=== PATIENT | male | born 1950 | race Caucasian/White ===

== ENCOUNTER 2019-02-27 22:39 | Emergency (ER) | payer MEDICARE, MEDICAID ==
[~2019-02-27] VITALS: Ht 180.3 cm; Wt 95.0 kg
[2019-02-28 00:01] VITALS: BP 147/68
--- NOTE | 2019-02-28 00:04 | NUR ---
VIOLETTA SWAIN # CELLPHONE [phone] , THIS IS THE ADMINSTRATOR FOR THE [facility]IVING FACILITY THE PATIENT IS AT, HE WOULD LIKE A PHONE CALL WHEN WE HAVE HERE DISPOSITION, THE FACILITY USES [facility].
[2019-02-28 00:21] LABS: ANION GAP 4 (8-16); BLOOD UREA NITROGEN 17 MG/DL (7-18); BUN/CREATININE RATIO 16.7 (5.4-32.0); CHLORIDE 106 MMOL/L (99-107); CREATININE 1.02 MG/DL (0.60-1.10); GLUCOSE 119 MG/DL (70-104); POTASSIUM 3.5 MMOL/L (3.5-5.1); SODIUM 141 MMOL/L (135-145); TOTAL CARBON DIOXIDE 30.6 MMOL/L (24-32)
[2019-02-28 00:22] LABS: ALANINE AMINOTRANSFERASE 39 U/L (12-78); ALBUMIN 3.2 G/DL (3.4-5.0); ALBUMIN/GLOBULIN RATIO 0.9 (1.1-1.5); ALKALINE PHOSPHATASE 92 IU/L (46-116); ASPARTATE AMINO TRANSFERASE 14 U/L (10-37); BILIRUBIN,TOTAL 0.4 MG/DL (0.1-1.0); CALCIUM 8.9 MG/DL (8.5-10.1); TOTAL PROTEIN 6.7 G/DL (6.4-8.2); eGFR 73 ML/MIN
[2019-02-28 00:26] LABS: BASOPHILS # (AUTO) 0.1 X10'3 (0-0.2); EOSINOPHILS # (AUTO) 0.1 X10'3 (0-0.9); HEMOGLOBIN 15.3 g/dl (14.0-17.9); MONOCYTES # (AUTO) 0.7 X10'3 (0-0.9); MONOCYTES % (AUTO) 9.9 % (2-12); NEUTROPHILS # (AUTO) 5.2 X10'3 (1.8-7.7); WHITE BLOOD COUNT 7.2 X10'3 (4.5-11.0)
[2019-02-28 00:28] LABS: BASOPHILS % (AUTO) 1.3 % (0-1); EOSINOPHILS % (AUTO) 1.8 % (0-6); HEMATOCRIT 45.1 % (42.0-52.0); LYMPHOCYTES % (AUTO) 14.1 % (21-51); MEAN CORPUSCULAR HEMOGLOBIN 30.6 PG (27.0-31.0); MEAN CORPUSCULAR HGB CONC 33.9 g/dL (33.0-36.5); MEAN CORPUSCULAR VOLUME 90.2 FL (78-98); MEAN PLATELET VOLUME 8.6 FL (7.4-10.4); NEUTROPHILS % (AUTO) 72.9 % (42-75); PLATELET COUNT 149 X10'3 (140-440); RED CELL DISTRIBUTION WIDTH 14.5 % (11.5-14.5)
[2019-02-28 00:29] LABS: PARTIAL THROMBOPLASTIN TIME 29 SECONDS (22-32)
--- NOTE | 2019-02-28 02:32 | NUR ---
CONTACTED CARE FACILITY WHO WILL CONTACT JESSICA FOR PT PICKUP
== END 2019-02-28 02:33 | disposition home or self-care (01) ==
LOC: ER 22:40
DX: K62.5 Hemorrhage of anus and rectum (principal)
CPT/HCPCS: 36415; 74176; 80053; 85025; 85610; 85730; 86870; 86880; 86885; 86900; 86901; 86902; 86905; 99284

== ENCOUNTER 2019-06-09 07:45 | Day surgery (SDC) | payer MEDICARE, MEDICAID ==
[2019-06-04 14:28] LABS: BASOPHILS # (AUTO) 0.1 X10'3 (0-0.2); EOSINOPHILS # (AUTO) 0.1 X10'3 (0-0.9); MEAN CORPUSCULAR HEMOGLOBIN 30.7 PG (27.0-31.0); MONOCYTES # (AUTO) 0.6 X10'3 (0-0.9); PRE OP HEMOGLOBIN 15.1 g/dL (14.0-17.9); RED BLOOD COUNT 4.91 X10'6 (4.70-6.10); RED CELL DISTRIBUTION WIDTH 14.3 % (11.5-14.5)
[2019-06-04 14:29] LABS: BASOPHILS % (AUTO) 1.3 % (0-1); EOSINOPHILS % (AUTO) 1.9 % (0-6); LYMPHOCYTES % (AUTO) 13.7 % (21-51); MEAN CORPUSCULAR HGB CONC 33.7 g/dL (33.0-36.5); MEAN PLATELET VOLUME 8.4 FL (7.4-10.4); MONOCYTES % (AUTO) 7.4 % (2-12); NEUTROPHILS # (AUTO) 5.7 X10'3 (1.8-7.7); NEUTROPHILS % (AUTO) 75.7 % (42-75); PRE OP HEMATOCRIT 44.7 % (42.0-52.0); PRE OP PLATELET COUNT 156 X10'3 (140-440)
[2019-06-04 14:41] LABS: ALBUMIN 3.5 G/DL (3.4-5.0); ALBUMIN/GLOBULIN RATIO 0.9 (1.1-1.5); ALKALINE PHOSPHATASE 100 IU/L (46-116); BLOOD UREA NITROGEN 15 MG/DL (7-18); BUN/CREATININE RATIO 13.4 (5.4-32.0); CALCIUM 9.1 MG/DL (8.5-10.1); CREATININE 1.12 MG/DL (0.60-1.10); PRE OP ALT 36 U/L (30-65); PRE OP AST 16 U/L (10-37); PRE OP BILIRUB, TOTAL 0.5 MG/DL (0.0-1.0); PRE OP GLUCOSE 156 MG/DL (70-104); TOTAL CARBON DIOXIDE 34.8 MMOL/L (24-32); TOTAL PROTEIN 7.3 G/DL (6.4-8.2); eGFR 65 ML/MIN
[2019-06-04 15:14] LABS: CHLORIDE 103 MMOL/L (99-107); PRE OP ANION GAP 2 (8-16); PRE OP POTASSIUM 3.9 MMOL/L (3.4-5.1); PRE OP SODIUM 140 MMOL/L (135-145)
[2019-06-04 15:59] LABS: HEMOGLOBIN A1C 5.8 % (4.5-6.2)
[~2019-06-09] VITALS: Ht 180.3 cm; Wt 99.8 kg
[2019-06-09] VITALS (9 sets, daily range): BP systolic 113–134; BP diastolic 63–78
[~2019-06-09 07:45] MED LIST: DOCU250C88 PO; FLO0.4C PO; HYDR12.5 PO; LEVO75TA7 PO; LORA10TA7 PO; LOSA50TA64 PO; POTA20TA19 PO; RANI150T8 PO; SIME80TA16 PO; cefazolin/dext.iso 2gm/100 ML IV ONE; famotidine 20mg tablet PO ONE; ringers solution, lacted 1,000 ML IV SCH
[2019-06-09] MEDS ORDERED: BUPIVAcaine/PF 2.5 mg/ml (0.25%) 30ml vial ONE (10:47)
[2019-06-09] MEDS ORDERED: LIDOcaine 1% 30ml preserv. free vial ONE (10:47)
[2019-06-09] MEDS ORDERED: ringers solution, lacted 1,000 ML IV SCH (10:55)
[2019-06-09] MEDS ORDERED: ondansetron/PF 4mg/2ml inj IV PRN (10:55)
[2019-06-09] MEDS ORDERED: fentaNYL/PF 50MCG/1 ML 2ML syringe IV PRN ×2 (10:55)
[2019-06-09] MEDS ORDERED: morphine 4 MG/ML inj SYRINge IV PRN ×2 (10:55)
[2019-06-09] MEDS ORDERED: hydrALAZINE 20mg/ml inj. IV PRN (10:55)
[2019-06-09] MEDS ORDERED: labetalol 20mg/4ml (5mg/ml) syringe IV PRN (10:55)
[2019-06-09] MEDS ORDERED: fentaNYL /PF 50mcg/ml 5ml ampule ONE (11:36)
[2019-06-09] MEDS ORDERED: midazolam 2 mg/2 ml injection ONE (11:36)
[2019-06-09] MEDS ORDERED: glycopyrrolate 0.2mg/ml inj ONE (11:45)
[2019-06-09] MEDS ORDERED: LIDOcaine 2% (20mg/ml) 5ml vial ONE (11:45)
[2019-06-09] MEDS ORDERED: ondansetron/PF 4mg/2ml inj ONE (11:45)
[2019-06-09] MEDS ORDERED: rocuronium 10mg/ml inj IV ONE (11:45)
[2019-06-09] MEDS ORDERED: neostigmine methylsulfate 1 MG/ML 10ml vial ONE (11:45)
[2019-06-09] MEDS ORDERED: dexamethasone sod phosphate 4mg/ml inj. ONE (11:45)
[2019-06-09] MEDS ORDERED: propofol inj 20 ML IV ONE (11:45)
[2019-06-09] MEDS ORDERED: phenylephrine 10mg/ml inj. ONE (11:52)
[2019-06-09] MEDS ORDERED: sevoflurane 250ml liquid IH ONE (11:52)
[2019-06-09] MEDS ORDERED: ketorolac trometh. 30mg/ml inj. ONE (12:22)
[2019-06-09] MEDS ORDERED: ROPIVAcaine 0.5% (5mg/ml) 30ml vial ONE (12:22)
--- NOTE | 2019-06-09 13:41 | NUR ---
Received from OR via , accompanied by Anesthesiologist DR DIAMOND and report given by Anesthesiolgist. AWAKENS TO VOICE. VITALS STABLE. DRESSING DI. FAISAL PAIN. ABD BINDER IN PLACE.
[2019-06-09] MEDS ORDERED: oxyCODONE/APAP 10/325mg tablet PO ONE (14:15)
--- NOTE | 2019-06-09 15:01 | NUR ---
AWAKE AND ORIENTED. VITALS STABLE. DRESSING DITere [place] IMPROVING. HOME WITH HIS SLOT OPERATIONS DIRECTOR AT THIS TIME.
[2019-06-09] MEDS ORDERED: potassium Cl 20 mEq SR tablet PO SCH (20:00)
[2019-06-09] MEDS ORDERED: simethicone 80mg chew tab PO SCH (21:00)
[2019-06-10] MEDS ORDERED: losartan 50mg tablet PO SCH (08:00)
[2019-06-10] MEDS ORDERED: loratadine 10mg tablet PO SCH (08:00)
[2019-06-10] MEDS ORDERED: tamsulosin 0.4mg capsule PO SCH (08:00)
[2019-06-10] MEDS ORDERED: famotidine 20mg tablet PO SCH (08:00)
[2019-06-10] MEDS ORDERED: HYDROchlorothiazide 12.5mg capsule PO SCH (08:00)
[2019-06-10] MEDS ORDERED: levoTHYROXINE 75mcg tablet PO SCH (08:00)
[2019-06-10] MEDS ORDERED: docusate sod 250mg capsule PO SCH (08:00)
== END 2019-06-09 15:01 | disposition home or self-care (01) ==
LOC: PAS 07:45
PROVIDERS: ATTEND Surgery
DX: K43.0 Incisional hernia with obstruction, without gangrene (principal); K21.9 Gastro-esophageal reflux disease without esophagitis; N40.0 Benign prostatic hyperplasia without lower urinary tract symptoms; Z79.899 Other long term (current) drug therapy
CPT/HCPCS: 36415; 49655; 64488; 80053; 82948; 83036; 85025; 93005; 93306; J1100; J1885; J2001; J2250; J2270; J2405; J2704; J2710; J3010; J3490; A4215; A4618; C1781; J2370; J2795; J7120

== ENCOUNTER 2022-09-24 05:46 | Emergency (ER) | payer MEDICARE, MEDICAID ==
[~2022-09-24] VITALS: Ht 180.3 cm; Wt 94.5 kg
[~2022-09-24 05:46] MED LIST changes: -DOCU250C88 PO; +DOCU250C89 PO; +POTA-207 PO; -POTA20TA19 PO; -cefazolin/dext.iso 2gm/100 ML IV ONE; -famotidine 20mg tablet PO ONE; -ringers solution, lacted 1,000 ML IV SCH
[2022-09-24 06:51] VITALS: BP 131/64
[2022-09-24 07:05] LABS: CLARITY,URINE CLEAR (Clear); COLOR,URINE YELLOW (Yellow); GLUCOSE, URINE NEGATIVE (Neg); KETONES,URINE NEGATIVE (Neg); LEUKOCYTE ESTERASE ,URINE NEGATIVE (Neg); NITRITES, URINE NEGATIVE (Neg); OCCULT BLOOD,URINE SMALL (Neg); PH,URINE 5.5 (4.8-8.0); PROTEIN,URINE NEGATIVE (Neg); UROBILINOGEN,URINE 0.2 E.U/dL (0.2-1.0)
[2022-09-24 07:10] LABS: UA COLLECTION TYPE CLN CATCH MIDSTREAM
[2022-09-24 07:11] LABS: BACTERIA,URINE NONE SEEN /HPF (Neg); MUCUS STRANDS NONE SEEN /LPF (Neg); SQUAMOUS EPITHELIAL CELL,UR FEW /LPF (FEW); WBC,URINE 0-4 /HPF (0-4)
[2022-09-24 07:57] LABS: BASOPHILS # (AUTO) 0.1 X10'3 (0-0.2); BASOPHILS % (AUTO) 1.1 % (0-1); EOSINOPHILS # (AUTO) 0.1 X10'3 (0-0.9); EOSINOPHILS % (AUTO) 2.1 % (0-6); HEMATOCRIT 35.2 % (42.0-52.0); HEMOGLOBIN 11.3 g/dl (14.0-17.9); LYMPHOCYTES # (AUTO) 0.7 X10'3 (1.1-4.8); LYMPHOCYTES % (AUTO) 9.5 % (21-51); MEAN CORPUSCULAR HEMOGLOBIN 30.4 PG (27.0-31.0); MEAN CORPUSCULAR HGB CONC 32.1 g/dL (33.0-36.5); MEAN CORPUSCULAR VOLUME 94.5 FL (78-98); MEAN PLATELET VOLUME 8.4 FL (7.4-10.4); MONOCYTES # (AUTO) 0.4 X10'3 (0-0.9); MONOCYTES % (AUTO) 5.8 % (2-12); NEUTROPHILS # (AUTO) 5.7 X10'3 (1.8-7.7); NEUTROPHILS % (AUTO) 81.5 % (42-75); PLATELET COUNT 132 X10'3 (140-440); RED BLOOD COUNT 3.73 X10'6 (4.70-6.10); RED CELL DISTRIBUTION WIDTH 16.5 % (11.5-14.5); WHITE BLOOD COUNT 6.9 X10'3 (4.5-11.0)
[2022-09-24 08:10] LABS: ALANINE AMINOTRANSFERASE 25 U/L (12-78); ALBUMIN 3.8 G/DL (3.4-5.0); ALBUMIN/GLOBULIN RATIO 1.2 (1.1-1.5); ALKALINE PHOSPHATASE 99 IU/L (46-116); ANION GAP 6 (8-16); ASPARTATE AMINO TRANSFERASE 22 U/L (10-37); BILIRUBIN,TOTAL 1.3 MG/DL (0.1-1.0); BLOOD UREA NITROGEN 25 MG/DL (7-18); BUN/CREATININE RATIO 27.8 (5.4-32.0); CALCIUM 8.9 MG/DL (8.5-10.1); CHLORIDE 103 MMOL/L (99-107); GLUCOSE 193 MG/DL (70-104); LIPASE 122 U/L (73-393); POTASSIUM 3.8 MMOL/L (3.5-5.1); SODIUM 137 MMOL/L (135-145); TOTAL CARBON DIOXIDE 27.7 MMOL/L (24-32); TOTAL PROTEIN 6.9 G/DL (6.4-8.2); eGFR 83 ML/MIN
[2022-09-24] MEDS ORDERED: iohexol 300mg/ml 100ml inj. ONE (08:20)
--- NOTE | 2022-09-24 09:05 | NUR ---
Gurwinder person is patients home/facility. Phone number: [phone] staffing administrator, Demetria: [phone] Facility uses [facility] to tranport patients. Okay to call [facility] directly for transport per Demetria.
--- NOTE | 2022-09-24 10:47 | NUR ---
[facility] CONTACTED FOR TRANSPORT. ETA 1100.
== END 2022-09-24 14:00 | disposition home or self-care (01) ==
LOC: ER 05:46
DX: K43.9 Ventral hernia without obstruction or gangrene (principal); I10 Essential (primary) hypertension; Z90.49 Acquired absence of other specified parts of digestive tract; Z90.89 Acquired absence of other organs; Z79.899 Other long term (current) drug therapy; Z60.2 Problems related to living alone
CPT/HCPCS: 36415; 74177; 80053; 81001; 83690; 85025; 99285; J3490; Q9967

== ENCOUNTER 2024-01-10 14:44 | Emergency (ER) | payer MEDICARE, MEDICAID ==
[~2024-01-10] VITALS: Ht 180.3 cm; Wt 87.7 kg
[~2024-01-10 14:44] MED LIST changes: +ACET-890 PO; +CETI10TA15 PO; +FAMO20TA8 PO; -LORA10TA7 PO; +PSYL284P7 PO; -RANI150T8 PO
[2024-01-10 15:05] LABS: BILIRUBIN,URINE NEGATIVE (Neg); CLARITY,URINE CLEAR (Clear); COLOR,URINE YELLOW (Yellow); GLUCOSE, URINE NEGATIVE (Neg); KETONES,URINE NEGATIVE (Neg); LEUKOCYTE ESTERASE ,URINE NEGATIVE (Neg); NITRITES, URINE NEGATIVE (Neg); OCCULT BLOOD,URINE LARGE (Neg); PROTEIN,URINE NEGATIVE (Neg); UROBILINOGEN,URINE 0.2 E.U/dL (0.2-1.0)
[2024-01-10 15:18] LABS: UA COLLECTION TYPE NON-SPECIFIED
[2024-01-10 15:24] LABS: WBC,URINE NONE SEEN /HPF (0-4)
[2024-01-10 15:25] LABS: BACTERIA,URINE FEW /HPF (Neg); RBC,URINE 20-50 /HPF (0-2); SQUAMOUS EPITHELIAL CELL,UR FEW /LPF (FEW)
[2024-01-10 15:46] LABS: BASOPHILS # (AUTO) 0.1 X10'3 (0-0.2); BASOPHILS % (AUTO) 1.1 % (0-1); EOSINOPHILS # (AUTO) 0.1 X10'3 (0-0.9); EOSINOPHILS % (AUTO) 1.1 % (0-6); HEMATOCRIT 36.8 % (42.0-52.0); HEMOGLOBIN 12.1 g/dl (14.0-17.9); LYMPHOCYTES # (AUTO) 0.8 X10'3 (1.1-4.8); LYMPHOCYTES % (AUTO) 12.9 % (21-51); MEAN CORPUSCULAR HEMOGLOBIN 29.5 PG (27.0-31.0); MEAN CORPUSCULAR HGB CONC 32.9 g/dL (33.0-36.5); MEAN CORPUSCULAR VOLUME 89.7 FL (78-98); MEAN PLATELET VOLUME 8.6 FL (7.4-10.4); MONOCYTES # (AUTO) 0.4 X10'3 (0-0.9); MONOCYTES % (AUTO) 6.3 % (2-12); NEUTROPHILS % (AUTO) 78.6 % (42-75); PLATELET COUNT 127 X10'3 (140-440); RED BLOOD COUNT 4.11 X10'6 (4.70-6.10); RED CELL DISTRIBUTION WIDTH 16.8 % (11.5-14.5); WHITE BLOOD COUNT 6.4 X10'3 (4.5-11.0)
[2024-01-10 16:00] LABS: ALANINE AMINOTRANSFERASE 38 U/L (12-78); ALBUMIN 3.7 G/DL (3.4-5.0); ALBUMIN/GLOBULIN RATIO 1.1 (1.1-1.5); ALKALINE PHOSPHATASE 79 IU/L (46-116); ANION GAP 6 (8-16); ASPARTATE AMINO TRANSFERASE 18 U/L (10-37); BILIRUBIN,TOTAL 1.3 MG/DL (0.1-1.0); BLOOD UREA NITROGEN 23 MG/DL (7-18); BUN/CREATININE RATIO 26.7 (10.0-20.0); CALCIUM 8.7 MG/DL (8.5-10.1); CHLORIDE 102 MMOL/L (99-107); CREATININE 0.86 MG/DL (0.60-1.10); GLUCOSE 164 MG/DL (70-104); LIPASE 27 U/L (16-77); POTASSIUM 3.7 MMOL/L (3.5-5.1); SODIUM 135 MMOL/L (135-145); TOTAL CARBON DIOXIDE 27.2 MMOL/L (24-32); eCRCL 83 ML/MIN; eGFR 87 ML/MIN
[2024-01-10] MEDS ORDERED: FLO0.4C PO (18:13)
[2024-01-10] MEDS: tamsulosin 0.4mg capsule PO STA (18:23)
[2024-01-10 20:21] VITALS: BP 124/64; PULSE 65; RESP 16; TEMP 98.9; O2SAT 96
== END 2024-01-10 20:24 ==
LOC: ER 14:45
DX: R31.9 Hematuria, unspecified (principal); K43.9 Ventral hernia without obstruction or gangrene; R10.30 Lower abdominal pain, unspecified; I10 Essential (primary) hypertension; Z90.49 Acquired absence of other specified parts of digestive tract; Z60.2 Problems related to living alone; Z79.899 Other long term (current) drug therapy; Z72.89 Other problems related to lifestyle
CPT/HCPCS: 36415; 74176; 80053; 81001; 83690; 85025; 99284; 99285